=== PATIENT | male | born 1990 | race African-American/Black ===

== ENCOUNTER 2018-10-04 05:17 | Day surgery (SDC) | payer OTHER ==
[2018-09-21 12:11] VITALS: BMI 24.7
[2018-10-04] MEDS ORDERED: LIDOCAINE HCL 1%, 10 MG/ML (20ML VIAL) ONE (14:51)
[2018-10-04] MEDS ORDERED: BACITRACIN 15 GM TUBE TOPICAL OINTMENT ONE (14:52)
[2018-10-04] MEDS ORDERED: PROPOFOL 20 ML ONE (15:02)
[2018-10-04] MEDS ORDERED: MIDAZOLAM HCL 2 MG/2 ML SINGLE DOSE VIAL ONE (15:02)
[2018-10-04] MEDS ORDERED: fentaNYL CITRATE 250 MCG/5 ML VIAL ONE (15:02)
[2018-10-04] MEDS ORDERED: ceFAZolin SODIUM 1 GM VIAL IVPB ONE ×2 (15:09)
[2018-10-04] MEDS ORDERED: BACITRACIN 15 GM TUBE TOPICAL OINTMENT TP ONE (15:34)
[2018-10-04] MEDS ORDERED: ACETAMINOPHEN 1000 MG/100 ML VIAL (NON FORMULARY) IVPB ONE (15:37)
--- NOTE | 2018-10-04 15:39 | HP ---
History & Physical Update - History History: No Change - Physical Physical: No Change - Assessment Assessment: No Change - Plan Plan: No Change
[2018-10-04] MEDS ORDERED: DEXTROSE 5%-0.45% SALINE 1,000 ML IV SCH (15:45)
[2018-10-04] MEDS ORDERED: ACETAMINOPHEN INJECTION 100 ML IVPB ONE (16:02)
--- NOTE | 2018-10-04 16:08 | OP ---
DATE OF OPERATION: 10/04/2018 PREOPERATIVE DIAGNOSIS: Penile condyloma. POSTOPERATIVE DIAGNOSIS: penile condyloma. PROCEDURE: Laser fulguration of penile condyloma, multiple, extensive. SURGEON: Villa Unger MD ANESTHESIA: LMA. ANTIBIOTICS: Ancef 2 g. ESTIMATED BLOOD LOSS: None. SPECIMENS: None. FINDINGS: He had multiple small to medium-sized condyloma over the base of the penis and along the penile shaft. PREOPERATIVE INDICATIONS: The patient is a 28-year-old male with multiple genital condylomata. He has tried topical treatments, has not been successful. He comes to the OR today for laser fulguration. DESCRIPTION OF OPERATION: The patient was brought to the OR and placed on the table in the supine position. He was given general anesthesia and IV antibiotics. A timeout was performed. The groin was prepped and draped sterilely. Using the CO2 laser, multiple condylomata were seen and treated from the base of the penis to along the shaft. Approximately 15 condylomata in total were treated. Good hemostasis was maintained throughout. The patient tolerated the procedure well. He was then woken up. VILLA UNGER M.D. [id number] MTDD
[2018-10-04] MEDS ORDERED: IBUPROFEN 800 MG/8 ML IJ IVPB SCH (18:00)
[2018-10-04 19:25] VITALS: BP 115/55; PULSE 70; TEMP 98
== END 2018-10-04 19:05 | disposition home or self-care (01) ==
LOC: JASU-SURG 05:17
PROVIDERS: ATTEND Urology
PROC: 0V5SXZZ Destruction of Penis, External Approach (ICD-10-PCS; principal; 2018-10-04 14:00)
DX: A63.0 Anogenital (venereal) warts (principal)
CPT/HCPCS: 94760; J0131

== ENCOUNTER 2018-10-17 00:14 | Emergency (ER) | payer OTHER ==
[2018-10-17 01:19] VITALS: BP 131/75; PULSE 86; TEMP 98.3; BMI 24.7
[2018-10-17] MEDS ORDERED: KETOROLAC TROMETHAMINE 15 MG/ML VIAL IM ONE (01:45)
[2018-10-17] MEDS ORDERED: KETOROLAC TROMETHAMINE 60 MG/2 ML VIAL ONE (01:45)
--- NOTE | 2018-10-17 01:46 | PDOC ---
History of Present Illness - General Chief Complaint: Toothache Stated Complaint: TOOTHACHE/HEADACHE Time Seen by Provider: 10/17/18 01:38 - History of Present Illness Initial Comments: 10/17/18 02:08 The patient is a 28 year old male with no PMH who presents with left sided tooth and gum pain with an associated headache since this morning. Patient states the tooth pain kept waking him up from bed today prompting an ED visit. He took 2 Extra strength Tylenols this morning with no relief of his toothpain. Patient also noticed left sided facial swelling secondary to the tooth pain but this has subsided since this afternoon. Patient denies having any cavities as of 4-5 months ago. Patient was going to see his dentist later today, but states the pain was severe enough to prompt him to come to the ER for pain medication. Reports headache came on gradually, feels like pressure on the L sided of his head. Denies fever or chills. Denies CP, SOB, focal weakness/numbness, dizziness, abd pain. Allergies: NKDA Surgeries: None reported. Social Hx: No reported alcohol, drug or cigarette use. Past History - Past Medical History Allergies/Adverse Reactions: Allergies Allergy/AdvReac Type Severity Reaction Status Date / Time No Known Allergies Allergy Verified 10/17/18 01:19 Home Medications: Ambulatory Orders Bacitracin - [Bacitracin Topical Ointment -] 1 applic TP BID #30 grams 10/04/18 Naproxen 500 mg PO BID PRN #14 tablet 10/17/18 Anemia: No Asthma: No Cancer: No Cardiac Disorders: No CVA: No COPD: No CHF: No Dementia: No Diabetes: No GI Disorders: No Disorders: No HTN: No Hypercholesterolemia: No Liver Disease: No Seizures: No Thyroid Disease: No - Suicide/Smoking/Psychosocial Hx Smoking History: Never smoked Have you smoked in the past 12 months: No Information on smoking cessation initiated: No Hx Alcohol Use: Yes Drug/Substance Use Hx: No Substance Use Type: None Review of Systems - Review of Systems Comments:: 10/17/18 02:13 "GENERAL/CONSTITUTIONAL: No fever or chills. No weakness. HEAD, EYES, EARS, NOSE AND THROAT: No change in vision. No ear pain or discharge. No sore throat. (+) tooth and gum pain. (+) left sided facial swelling GASTROINTESTINAL: No nausea, vomiting, diarrhea or constipation. GENITOURINARY: No dysuria, frequency, or change in urination. CARDIOVASCULAR: No chest pain or shortness of breath. RESPIRATORY: No cough, wheezing, or hemoptysis. MUSCULOSKELETAL: No joint or muscle swelling or pain. No neck or back pain. SKIN: No rash NEUROLOGIC: +headache, no vertigo, loss of consciousness, or change in strength/ sensation. ENDOCRINE: No increased thirst. No abnormal weight change. HEMATOLOGIC/LYMPHATIC: No anemia, easy bleeding, or history of blood clots. ALLERGIC/IMMUNOLOGIC: No hives or skin allergy. *Physical Exam - Vital Signs Last Vital Signs Temp Pulse Resp BP Pulse Ox 98.3 F 86 16 131/75 97 10/17/18 00:14 10/17/18 00:14 10/17/18 00:14 10/17/18 00:14 10/17/18 00:14 - Physical Exam Comments: 10/17/18 01:47 GENERAL: Awake, alert, and fully oriented, in no acute distress. Non toxic, well appearing. HEAD: No evidence of facial edema, no facial ttp EYES: PERRLA, EOMI, sclera anicteric, conjunctiva clear ENT: Pt points to tooth 14 as painful tooth, tooth 14 with metallic filling, no ttp with percussion of the tooth.+ mild erythema to adjacent gingiva, no areas of fluctuance or evidence of fluid collection. No edema else where in oral cavity. NECK: Normal ROM, supple, no lymphadenopathy, JVD, or masses LUNGS: Breath sounds equal, clear to auscultation bilaterally. No wheezes, and no crackles HEART: Regular rate and rhythm, normal S1 and S2, no murmurs, rubs or gallops ABDOMEN: Soft, nontender, normoactive bowel sounds. EXTREMITIES: Normal range of motion, no edema. NEUROLOGICAL: Normal speech, cranial nerves intact, equal strength and sensation b/l SKIN: Warm, Dry, normal turgor, no rashes or lesions noted. Medical Decision Making - Medical Decision Making 10/17/18 01:53 28yo M with no PMH presents to the ED with tooth pain and resultant L sided headache. +erythema to gingiva adjacent to tooth but no evidence of abscess. Pt is well appearing. No fevers/chills or systemic signs of infection. Headache likely 2/2 toothache, no red flags concerning for SAH. Pt treated with toradol IM, will call his dentist in the AM. Pt clincially stable for DC home I discussed the physical exam findings, ancillary test results and final diagnoses with the patient. I answered all of the patient's questions. The patient was satisfied with the care received and felt comfortable with the discharge plan and treatment plan. The patient will call their primary care physician within 24 hours to arrange follow-up and will return to the Emergency Department with any new, persistent or worsening symptoms. *DC/Admit/Observation/Transfer Diagnosis at time of Disposition: Tooth ache, Headache, Gingival erythema - Discharge Dispostion Disposition: HOME Condition at time of disposition: Improved Decision to Admit order: No - Prescriptions Prescriptions: Naproxen 500 mg PO BID PRN #14 tablet PRN Reason: Pain - Referrals Referrals: Keegan Florez MD [Primary Care Provider] - - Patient Instructions Printed Discharge Instructions: DI for Dental Pain Additional Instructions: Follow up with your dentist within 48 hours Take naproxen for pain twice a day as needed Do not take aleve, ibuprofen, motrin, or advil while you are taking this medicine Return to the emergency department if you have any new, worsening or concerning symptoms - Post Discharge Activity - Attestations Physician Attestion: 10/17/18 02:06 I, Dr. Esperanza Mirza MD, attest that this document has been prepared under my direction and personally reviewed by me in its entirety. I further attest, that it accurately reflects all work, treatment, procedures and medical decision -making performed by me.
== END 2018-10-17 02:12 | disposition home or self-care (01) ==
LOC: JER 00:14
PROC: 3E0233Z Introduction of Anti-inflammatory into Muscle, Percutaneous Approach (ICD-10-PCS; principal; 2018-10-17)
DX: K08.89 Other specified disorders of teeth and supporting structures (principal); R51 Headache; L53.8 Other specified erythematous conditions
CPT/HCPCS: 99281-25

== ENCOUNTER 2020-04-15 20:48 | Emergency (ER) | payer OTHER ==
[2020-04-15 21:02] VITALS: BP 133/100; PULSE 81; TEMP 98.5; BMI 25.4
[2020-04-15] MEDS ORDERED: ACETAMINOPHEN 325 MG TABLET (FP) PO ONE (21:02)
--- NOTE | 2020-04-15 21:03 | PDOC ---
Rapid Medical Evaluation Time Seen by Provider: 04/15/20 20:59 Medical Evaluation: Allergies Allergy/AdvReac Type Severity Reaction Status Date / Time No Known Allergies Allergy Verified 10/17/18 01:19 04/15/20 20:59 Pt presents to the ER for tooth pain for 4 days. States he has a filling with a chip. Exam: swelling to the back R molar Orders: Tylenol Pt to proceed to the ER for further evaluation Discharge Disposition - Diagnosis Tooth ache - Referrals Referrals: Urgent Care [facility] [Outside] - Patient Instructions - Post Discharge Activity
[2020-04-15] MEDS ORDERED: ACETAMINOPHEN 500 MG TABLET (FP) ONE (21:07)
--- NOTE | 2020-04-15 21:39 | PDOC ---
History of Present Illness - General Chief Complaint: Toothache Stated Complaint: TOOTHACHE Time Seen by Provider: 04/15/20 20:59 - History of Present Illness Initial Comments: 04/15/20 21:37 30-year-old male no comorbidities presents for evaluation of toothache and facial swelling x1 day no systemic symptoms. Patient states he fell and broke Past History - Medical History Allergies/Adverse Reactions: Allergies Allergy/AdvReac Type Severity Reaction Status Date / Time No Known Allergies Allergy Verified 10/17/18 01:19 Home Medications: Ambulatory Orders Bacitracin - [Bacitracin Topical Ointment -] 1 applic TP BID #30 grams 10/04/18 Naproxen 500 mg PO BID PRN #14 tablet 10/17/18 Amoxicillin 875 mg PO BID #20 tablet 04/15/20 Ibuprofen [Motrin -] 600 mg PO TID #30 tablet 04/15/20 Oxycodone HCl/Acetaminophen [Percocet 5-325 mg Tablet] 1 - 2 tab PO Q6H PRN #20 tab MDD 6 04/15/20 Anemia: No Asthma: No Cancer: No Cardiac Disorders: No CVA: No COPD: No CHF: No Dementia: No Diabetes: No GI Disorders: No Disorders: No HTN: No Hypercholesterolemia: No Liver Disease: No Seizures: No Thyroid Disease: No - Psycho-Social/Smoking History Smoking History: Former smoker Have you smoked in the past 12 months: Yes Information on smoking cessation initiated: No - Substance Abuse Hx (Audit-C & DAST Scrn) How often the patient has a drink containing alcohol: Never Score: In Men: 4 or > Positive; In Women: 3 or > Positive: 0 Screen Result (Pos requires Nsg. Audit-10AR): Negative In the last yr the pt used illegal drug/Rx for NonMed reason: No Score: Yes response is considered Positive: 0 Screen Result (Positive result requires Nsg. DAST-10): Negative Review of Systems - Review of Systems Constitutional: No: Fever HEENTM: Yes: Dental Problems *Physical Exam - Vital Signs Last Vital Signs Temp Pulse Resp BP Pulse Ox 98.5 F 81 19 133/100 98 04/15/20 20:59 04/15/20 20:59 04/15/20 20:59 04/15/20 20:59 04/15/20 20:59 - Physical Exam 04/15/20 21:37 Temporary filling in left lower molar left-sided facial swelling no palpable fluctuance no appreciable erythema diffuse tenderness the left lower gumline ED Treatment Course - Medications Given in the ED: ED Medications Discontinued Medications Generic Name Dose Route Start Last Admin Trade Name Alex PRN Reason Stop Dose Admin Acetaminophen 1,000 mg 04/15/20 21:02 04/15/20 21:15 Tylenol - PO 04/15/20 21:03 1,000 mg ONCE ONE Administration Medical Decision Making - Medical Decision Making 04/15/20 21:38 Antibiotics and pain medication sent to pharmacy. Patient will follow-up with urgent care dental tomorrow without fail I have reviewed the pathophysiology with the patient. They are in agreement with the treatment plan all questions were answered to their satisfaction. Understanding for follow-up without fail was also conveyed to the patient. Again they are in agreement. Discharge - Discharge Information Problems reviewed: Yes Clinical Impression/Diagnosis: Tooth ache Condition: Stable Disposition: HOME - Admission No - Additional Discharge Information Prescriptions: Amoxicillin 875 mg PO BID #20 tablet Ibuprofen [Motrin -] 600 mg PO TID #30 tablet Oxycodone HCl/Acetaminophen [Percocet 5-325 mg Tablet] 1 - 2 tab PO Q6H PRN #20 tab MDD 6 PRN Reason: Pain - Follow up/Referral Referrals: Urgent Care [facility] [Outside] - Patient Discharge Instructions Additional Instructions: Please take the antibiotics and use the pain medication as directed. Return to the emergency room for further issues and without fail follow-up with urgent care dental tomorrow. - Post Discharge Activity
== END 2020-04-15 21:41 | disposition home or self-care (01) ==
LOC: JERFT 20:48
DX: K08.89 Other specified disorders of teeth and supporting structures (principal)
CPT/HCPCS: 99283-25

== ENCOUNTER 2020-04-20 11:16 | Emergency (ER) | payer OTHER ==
[2020-04-20] MEDS ORDERED: LIDOCAINE VISCOUS 2% ORAL/TOP 20 ML UNIT-DOSE CUP MM ONE (11:22)
[2020-04-20] MEDS ORDERED: KETOROLAC TROMETHAMINE 30 MG/1 ML VIAL IM ONE (11:22)
--- NOTE | 2020-04-20 11:22 | PDOC ---
Rapid Medical Evaluation Time Seen by Provider: 04/20/20 11:18 Medical Evaluation: Allergies Allergy/AdvReac Type Severity Reaction Status Date / Time No Known Allergies Allergy Verified 10/17/18 01:19 04/20/20 11:18 HPI: Pt seen here last Monday, pt complaining of dental pain, has dental f/u Monday. PE: Poor dental hygiene temporary fillings to teeth no sign of abscess Plan: Toradol vicous lidocaine Pt precede to ED for further eval
[2020-04-20 11:23] VITALS: BP 133/105; PULSE 82; TEMP 97.9; BMI 25.4
--- OUTSIDE RECORDS SUMMARY | 2020-04-20 11:36 | XMS ---
:1990 Author Organization [facility] Support Name Relationship Address Phone UE Unavailable Unavailable Unavailable [facility] Unavailable [address] [place] [address] OLY OLIVARES MOTHER [address] [place] [address] OLY OLIVARES Mother [address] [place] [address] Re-disclosure Warning The records that you are about to access may contain information from federally- assisted alcohol or drug abuse programs. If such information is present, then the following federally mandated warning applies: This information has been disclosed to you from records protected by federal confidentiality rules (42 CFR part 2). The federal rules prohibit you from making any further disclosure of this information unless further disclosure is expressly permitted by the written consent of the person to whom it pertains or as otherwise permitted by 42 CFR part 2. A general authorization for the release of medical or other information is NOT sufficient for this purpose. The Federal rules restrict any use of the information to criminally investigate or prosecute any alcohol or drug abuse patient.The records that you are about to access may contain highly sensitive health information, the redisclosure of which is protected by Article 27-F of the [facility] Public Health law. If you continue you may haveaccess to information: Regarding HIV / AIDS; Provided by facilities licensed or operated by the [facility] Office of Mental Health; or Provided by the [facility] Office for People With Developmental Disabilities. If such information is present, then the following [facility] mandated warning applies: This information has been disclosed to you from confidential records which are protected by state law. State law prohibits you from making any further disclosure of this information without the specific written consent of the person to whom it pertains, or as otherwise permitted by law. Any unauthorized further disclosure in violation of state law may result in a fine or retirement sentence or both. A general authorization for the release of medical or other information is NOT sufficient authorization for further disclosure. Insurance Providers Payer name Policy type Policy ID Covered Covered republican's Policy P palomo / Coverage republican ID relationship to Gold Inf ormation type gold MEDICAID [id number] SP [id number] MEDICARE [id number] SP [id number] MEDICAID [id number] SP [id number] MEDICARE [id number] SP [id number] Results ID Date Data Source [id number] 10/10/2019 12:00:00 AM EDT [facility] Name Value Range Interpretation Code Description Data Leta rce(s) Supporting Document(s ) 2019-nCoV [facility] RNA XXX NICOLE+probe- Imp This lab was ordered by [facility]-Jordana BRADLEY and reported by [employer] Procedure
--- NOTE | 2020-04-20 11:49 | PDOC ---
History of Present Illness - General Chief Complaint: Toothache Stated Complaint: MEDICATION REFILL Time Seen by Provider: 04/20/20 11:18 History Source: Patient Exam Limitations: No Limitations - History of Present Illness Initial Comments: 04/20/20 11:47 HISTORY OF PRESENT ILLNESS: 30-year-old male presents to the emergency department for evaluation of tooth pain for the past 5 days. Patient states she was seen and evaluated by dentist who told him to return today for continued evaluation and treatment of his dental issues. Went to the dentist this morning and was informed that the office was closed because of . Patient had finished his previous prescribed narcotic pain medication and is requesting medicine to get him through the next 24 hours where he will see his dentist tomorrow. He denies any foul taste to his mouth, fevers, chills, discharge or drainage. No recent travel or sick contacts. PAST MEDICAL HISTORY: Denies past medical history SURGICAL HISTORY: Denies ALLERGIES: No known drug allergies REVIEW OF SYSTEMS General/Constitutional: Denies fever or chills. Denies weakness, weight change. HEENT: See HPI Cardiovascular: Denies chest pain or shortness of breath. Respiratory: Denies cough, wheezing, or hemoptysis. Gastrointestinal: Denies nausea, vomiting, diarrhea or constipation. Denies rectal bleeding. Genitourinary: Denies dysuria, frequency, or change in urination. Musculoskeletal: Denies joint or muscle swelling or pain. Denies neck or back pain. Skin and breasts: Denies rash or easy bruising. Neurologic: Denies headache, vertigo, loss of consciousness, or loss of sensation. Psychiatric: Denies depression or anxiety. Endocrine: Denies increased thirst. Denies abnormal weight change. Hematologic/Lymphatic: Denies anemia, easy bleeding, or history of blood clots. Allergic/Immunologic: Denies hives or skin allergy. Denies latex allergy. PHYSICAL EXAM General Appearance: Well-appearing, appropriately dressed. No apparent distress, no intoxication. HEENT: EOMI, PERRLA, normal ENT inspection, normal voice, TMs normal, pharynx normal. No conjunctival pallor. No photophobia, scleral icterus. Neck: Supple. Trachea midline. No tenderness, rigidity, carotid bruit, stridor, lymphadenopathy, or thyromegaly. Respiratory/Chest: Lungs CTAB. No shortness of breath, chest tenderness, respiratory distress, accessory muscle use. No crackles, rales, rhonchi, stridor, wheezing, dullness Past History - Medical History Allergies/Adverse Reactions: Allergies Allergy/AdvReac Type Severity Reaction Status Date / Time No Known Allergies Allergy Verified 04/20/20 11:18 Home Medications: Ambulatory Orders Bacitracin - [Bacitracin Topical Ointment -] 1 applic TP BID #30 grams 10/04/18 Naproxen 500 mg PO BID PRN #14 tablet 10/17/18 Amoxicillin 875 mg PO BID #20 tablet 04/15/20 Amoxicillin 875 mg PO BID #20 tablet 04/15/20 Ibuprofen [Motrin -] 600 mg PO TID #30 tablet 04/15/20 Ibuprofen [Motrin -] 600 mg PO TID #30 tablet 04/15/20 Oxycodone HCl/Acetaminophen [Percocet 5-325 mg Tablet] 1 - 2 tab PO Q6H PRN #20 tab MDD 6 04/15/20 Oxycodone HCl/Acetaminophen [Percocet 5-325 mg Tablet] 1 - 2 tab PO Q6H PRN #6 tab MDD 6 04/20/20 Anemia: No Asthma: No Cancer: No Cardiac Disorders: No CVA: No COPD: No CHF: No Dementia: No Diabetes: No GI Disorders: No Disorders: No HTN: No Hypercholesterolemia: No Liver Disease: No Seizures: No Thyroid Disease: No - Psycho-Social/Smoking History Smoking History: Current every day smoker Have you smoked in the past 12 months: Yes Number of Cigarettes Smoked Daily: 0 Cigars Per Day: 1 Information on smoking cessation initiated: Yes - Substance Abuse Hx (Audit-C & DAST Scrn) How often the patient has a drink containing alcohol: Monthly or less Number of drinks the patient has on a typical day: 1 or 2 Score: In Men: 4 or > Positive; In Women: 3 or > Positive: 1 Screen Result (Pos requires Nsg. Audit-10AR): Negative In the last yr the pt used illegal drug/Rx for NonMed reason: No Score: Yes response is considered Positive: 0 Screen Result (Positive result requires Nsg. DAST-10): Negative *Physical Exam - Vital Signs Last Vital Signs Temp Pulse Resp BP Pulse Ox 97.9 F 82 18 133/105 H 100 04/20/20 11:18 04/20/20 11:18 04/20/20 11:18 04/20/20 11:18 04/20/20 11:18 Medical Decision Making - Medical Decision Making 04/20/20 11:49 A/P: 30-year-old male with left-sided mandibular pain for 5 days Patient is already taking Motrin and antibiotics for his tooth ache Prescription for Percocet provided for 1 day and patient is aware that this prescription will not be refilled in the emergency department and dentist is needed for continued treatment of his symptoms. Portions of this note have been documented using voice recognition software. As a result, errors may occur in the over the road driver process. Effort has been made to correct all grammatical and over the road driver error, but some may have been missed which may produce sporadic inaccurate over the road driver or nonsensical phrases. Discharge - Discharge Information Problems reviewed: Yes Clinical Impression/Diagnosis: Tooth ache Condition: Stable Disposition: HOME - Admission No - Additional Discharge Information Prescriptions: Oxycodone HCl/Acetaminophen [Percocet 5-325 mg Tablet] 1 - 2 tab PO Q6H PRN #6 tab MDD 6 PRN Reason: Pain - Follow up/Referral Referrals: Keegan Florez MD [Primary Care Provider] - - Patient Discharge Instructions Additional Instructions: Rest, drink lots of fluids: Teas, water, soups Saltwater gargles/ keep mouth clean and rinse after each meal May use wet teabag for pain relief to area Avoid hard chewing foods, stick to ice cream, Jell-O, yogurt etc. Motrin for fever and pain May take Percocet 1-2 tabs every 6 hours as needed for pain. This prescription will not be refilled after today and you need to see your dentist tomorrow as discussed. Continue all previously prescribed medications. Followup with private physician in one to 2 days as needed Return to emergency department for worsened symptoms, fevers, swelling to face or worsened pain - Post Discharge Activity
== END 2020-04-20 11:50 | disposition home or self-care (01) ==
LOC: JERFT 11:16
DX: K08.89 Other specified disorders of teeth and supporting structures (principal)
CPT/HCPCS: 99282-25

== ENCOUNTER 2022-10-10 13:13 | Emergency (ER) | payer OTHER ==
[2022-10-10 13:53] VITALS: BP 126/87; PULSE 83; RESP 18; TEMP 98.4; BMI 24.7
== END 2022-10-10 18:43 | disposition home or self-care (01) ==
LOC: JERFT 13:13 → JER 13:13 → JERFT 18:43
DX: J01.00 Acute maxillary sinusitis, unspecified (principal); R05.1 Acute cough; Z20.822 Contact with and (suspected) exposure to COVID-19
CPT/HCPCS: 0241U-QW; 71046-TC-FY; 99284-25

== ENCOUNTER 2023-08-03 19:10 | Emergency (ER) | payer OTHER ==
[2023-08-03 19:18] VITALS: BP 145/91; PULSE 96; RESP 20; TEMP 98.5; BMI 26.2
[2023-08-03] MEDS ORDERED: FAMOTIDINE 20 MG/50 ML IVPB 20 MG/50 ML MG IVPB ONE ×2 (20:21→20:36)
[2023-08-03] MEDS ORDERED: LACTATED RINGERS SOLUTION 1000 ML INFUS.BAG IV ONE (20:21)
[2023-08-03] MEDS ORDERED: ACETAMINOPHEN 1000 MG/100 ML BAG IVPB ONE (20:21)
[2023-08-03] MEDS ORDERED: ACETAMINOPHEN INJECTION 100 ML IVPB ONE (20:36)
[2023-08-03 20:58] LABS: BASO % 0.2 % (0-2.0); EOS % 0.7 % (0-4.5); HEMATOCRIT 43.6 % (35.4-49); HEMOGLOBIN 14.9 GM/dL (11.7-16.9); LYMPH % 19.3 % (8-40); MCH 31.2 pg (25.7-33.7); MCHC 34.2 g/dl (32.0-35.9); MEAN CELL VOLUME 91.2 fl (80-96); MONO % 7.6 % (3.8-10.2); NEUT % 72.2 % (42.8-82.8); PLATELET COUNT 316 10^3/uL (134-434); RBC 4.78 M/mm3 (4.00-5.60); RDW 12.8 % (11.9-15.9); URINE APPEARANCE CLEAR; URINE BILIRUBIN NEGATIVE (NEGATIVE); URINE COLOR YELLOW; URINE GLUCOSE (UA) NEGATIVE (NEGATIVE); URINE KETONE NEGATIVE (NEGATIVE); URINE LEUK ESTERASE NEGATIVE (NEGATIVE); URINE NITRITE NEGATIVE (NEGATIVE); URINE PROTEIN NEGATIVE (NEGATIVE); URINE UROBILINOGEN 0.2 mg/dL (0.2-1.0); WHITE BLOOD COUNT 8.1 K/mm3 (4.0-10.0)
[2023-08-03 21:03] LABS: INR 1.1 (0.83-1.09); PROTHROMBIN TIME (PATIENT) 12.7 SEC (9.7-13.0)
[2023-08-03 21:06] LABS: ACTIVATED PTT 27.3 SECONDS (25.2-36.5)
[2023-08-03 21:09] LABS: POTASSIUM 3.6 mmol/L (3.5-5.1)
[2023-08-03 21:11] LABS: CALCIUM 9.4 mg/dL (8.5-10.1)
[2023-08-03 21:12] LABS: ALBUMIN 4.3 g/dl (3.4-5.0)
[2023-08-03 21:15] LABS: CREATININE 1.4 mg/dL (0.55-1.3)
[2023-08-03 21:17] LABS: BILIRUBIN,TOTAL 0.5 mg/dL (0.2-1); TOT PROT 7.9 g/dl (6.4-8.2)
[2023-08-04] MEDS ORDERED: CIPROFLOXACIN 500 MG TABLET (RESTRICTED TO ID) PO ONE (02:08)
[2023-08-04] MEDS ORDERED: metroNIDAZOLE 250 MG TABLET PO ONE (02:08)
[2023-08-04] MEDS ORDERED: metroNIDAZOLE 250 MG TABLET ONE (02:24)
[2023-08-04] MEDS ORDERED: ONDANSETRON 4 MG/2 ML VIAL IVPUSH ONE (02:27)
[2023-08-04] MEDS ORDERED: ONDANSETRON 4 MG/2 ML VIAL ONE (02:34)
== END 2023-08-04 02:55 | disposition home or self-care (01) ==
LOC: JER 19:10
PROC: 3E033GC Introduction of Other Therapeutic Substance into Peripheral Vein, Percutaneous Approach (ICD-10-PCS; principal; 2023-08-03)
PROC: 3E033GC Introduction of Other Therapeutic Substance into Peripheral Vein, Percutaneous Approach (ICD-10-PCS; 2023-08-03)
PROC: 3E033GC Introduction of Other Therapeutic Substance into Peripheral Vein, Percutaneous Approach (ICD-10-PCS; 2023-08-04)
DX: R10.31 Right lower quadrant pain (principal); R10.32 Left lower quadrant pain; K52.9 Noninfective gastroenteritis and colitis, unspecified
CPT/HCPCS: 36415; 74177-TC; 80053; 81003; 82272; 83605; 83690; 85025; 85610; 85730; 86850; 86900; 86901; 87086; 87491; 87591; 87661; 99285-25; Q9967

== ENCOUNTER 2023-11-07 23:30 | Emergency (ER) | payer OTHER ==
[2023-11-07 23:53] VITALS: BP 142/76; PULSE 95; RESP 18; TEMP 98.4; BMI 25.9
[2023-11-08 00:43] LABS: EPI CELLS 5 /uL (0-25.1); HYALINE CASTS 1 /uL (0-3.1); PH,URINE 5.5 (5.0-8.0); URINE APPEARANCE CLEAR; URINE BACTERIA 1 /uL (0-1359); URINE BILIRUBIN NEGATIVE (NEGATIVE); URINE COLOR YELLOW; URINE GLUCOSE (UA) NEGATIVE (NEGATIVE); URINE KETONE TRACE (NEGATIVE); URINE LEUK ESTERASE TRACE (NEGATIVE); URINE NITRITE NEGATIVE (NEGATIVE); URINE PROTEIN TRACE (NEGATIVE); URINE RBC 8 /uL (0-23.9); URINE UROBILINOGEN 0.2 mg/dL (0.2-1.0); URINE WBC 95 /uL (0-25.8)
[2023-11-08] MEDS ORDERED: cefTRIAXone SODIUM 1 GM VIAL ONE (01:16)
[2023-11-08] MEDS ORDERED: LIDOCAINE HCL 1%, 10 MG/ML (20ML VIAL) ONE (01:16)
[2023-11-08] MEDS ORDERED: DOXYCYCLINE HYCLATE 100 MG CAPSULE PO ONE (01:16)
[2023-11-08] MEDS: DOXYCYCLINE HYCLATE 100 MG CAPSULE PO ONE (01:36)
== END 2023-11-08 02:20 | disposition home or self-care (01) ==
LOC: JER 23:30
DX: R30.0 Dysuria (principal); Z11.3 Encounter for screening for infections with a predominantly sexual mode of transmission
CPT/HCPCS: 36415; 81003; 87086; 87491; 87591; 99284-25

== ENCOUNTER 2024-05-08 14:31 | Emergency (ER) | payer OTHER ==
[2024-05-08 14:45] VITALS: RESP 20; TEMP 98.9; BMI 25.4
[2024-05-08] MEDS: LACTATED RINGERS SOLUTION 1,000 ML/1,000 ML INFUS.BAG IV STA (15:45)
[2024-05-08 15:58] LABS: BASO % 0.4 % (0-2.0); EOS % 0.1 % (0-4.5); HEMATOCRIT 44.6 % (35.4-49); HEMOGLOBIN 15.4 GM/dL (11.7-16.9); LYMPH % 15.1 % (8-40); MCH 31.1 pg (25.7-33.7); MCHC 34.5 g/dl (32.0-35.9); MEAN PLT VOLUME 7.5 fl (7.5-11.1); MONO % 5.4 % (3.8-10.2); PLATELET COUNT 326 10^3/uL (134-434); RBC 4.95 M/mm3 (4.00-5.60); RDW 13.5 % (11.9-15.9); WHITE BLOOD COUNT 7.7 K/mm3 (4.0-10.0)
[2024-05-08] MEDS ORDERED: ONDANSETRON 4 MG/2 ML VIAL ONE (16:07)
[2024-05-08] MEDS ORDERED: ACETAMINOPHEN INJECTION 100 ML ONE (16:07)
[2024-05-08] MEDS ORDERED: FAMOTIDINE 20 MG/50 ML IVPB 20 MG/50 ML MG IVPB ONE (16:07)
[2024-05-08] MEDS: ONDANSETRON 4 MG/2 ML VIAL IVPUSH ONE (16:15)
[2024-05-08 16:16] LABS: POTASSIUM 4.2 mmol/L (3.5-5.1)
[2024-05-08 16:18] LABS: ALBUMIN 4.6 g/dl (3.4-5.0)
[2024-05-08 16:19] LABS: BLOOD UREA NITROGEN 15.8 mg/dL (7-18)
[2024-05-08] MEDS: ACETAMINOPHEN 1000 MG/100 ML BAG IVPB ONE (16:20)
[2024-05-08] MEDS: FAMOTIDINE 20 MG/50 ML IVPB 20 MG/50 ML MG IVPB ONE (16:20)
[2024-05-08 16:22] LABS: CREATININE 1.4 mg/dL (0.55-1.3)
[2024-05-08 16:23] LABS: BILIRUBIN,TOTAL 0.7 mg/dL (0.2-1); TOT PROT 7.7 g/dl (6.4-8.2)
[2024-05-08 17:19] LABS: HIV INTERPRETATION NEGATIVE (NEGATIVE)
[2024-05-08] MEDS: SODIUM CHLORIDE 1,000 ML IV STA (18:14)
[2024-05-08 18:34] VITALS: BP 136/87; PULSE 71
[2024-05-08 18:52] LABS: PH,URINE 5.5 (5.0-8.0); URINE APPEARANCE CLEAR; URINE BILIRUBIN NEGATIVE (NEGATIVE); URINE COLOR YELLOW; URINE GLUCOSE (UA) NEGATIVE (NEGATIVE); URINE KETONE 1+ (NEGATIVE); URINE LEUK ESTERASE NEGATIVE (NEGATIVE); URINE NITRITE NEGATIVE (NEGATIVE); URINE PROTEIN TRACE (NEGATIVE); URINE UROBILINOGEN 0.2 mg/dL (0.2-1.0)
== END 2024-05-08 18:58 | disposition home or self-care (01) ==
LOC: JER 14:31
PROC: 3E033GC Introduction of Other Therapeutic Substance into Peripheral Vein, Percutaneous Approach (ICD-10-PCS; principal; 2024-05-08)
PROC: 3E033NZ Introduction of Analgesics, Hypnotics, Sedatives into Peripheral Vein, Percutaneous Approach (ICD-10-PCS; 2024-05-08)
PROC: 3E033GC Introduction of Other Therapeutic Substance into Peripheral Vein, Percutaneous Approach (ICD-10-PCS; 2024-05-08)
PROC: 3E0337Z Introduction of Electrolytic and Water Balance Substance into Peripheral Vein, Percutaneous Approach (ICD-10-PCS; 2024-05-08)
PROC: 3E0337Z Introduction of Electrolytic and Water Balance Substance into Peripheral Vein, Percutaneous Approach (ICD-10-PCS; 2024-05-08)
DX: R10.32 Left lower quadrant pain (principal); R11.0 Nausea; R19.7 Diarrhea, unspecified; Z20.822 Contact with and (suspected) exposure to COVID-19
CPT/HCPCS: 0241U-QW; 36415; 74177-TC; 80053; 81003; 85025; 86803; 87389; 99285-25; J0131

== ENCOUNTER 2024-05-12 15:43 | Emergency (ER) | payer OTHER ==
[2024-05-12 16:06] VITALS: BP 124/81; PULSE 71; RESP 18; TEMP 98.7; BMI 25.4
== END 2024-05-12 17:20 | disposition home or self-care (01) ==
LOC: JER 15:43 → JERFT 15:43
DX: R21 Rash and other nonspecific skin eruption (principal)
CPT/HCPCS: 99283-25